=== PATIENT | female | born 1970 | race Caucasian/White ===

== ENCOUNTER 2018-09-18 13:01 | Observation (INO) ==
--- NOTE | 2018-09-18 13:34 | Emergency Department Note ---
Disposition Clinical Impression: Chest pain, Palpitations, Sinus tachycardia Disposition: Admitted As Inpatient Condition: Fair General Adult HPI - General Stated complaint: Hypertension,Palpatations Time Seen by Provider: 09/18/18 13:10 Source: patient Limitations: no limitations Nursing Notes Reviewed: Yes Vital Signs Reviewed: Yes - History of Present Illness Pain Scale: 0 - Related Data Home Medications Medication Instructions Recorded Confirmed Ibuprofen [Ibu-200] 600 mg PO 1-2XD PRN 09/18/18 09/18/18 Omeprazole [PriLOSEC] 40 mg PO DAILY 09/18/18 09/18/18 Orphenadrine Citrate [Orphenadrine 100 mg PO BID 09/18/18 09/18/18 Citrate ER] Rizatriptan Benzoate [Maxalt Chemical Engineering Technologist] 10 mg PO PRN PRN 09/18/18 09/18/18 Allergies Allergy/AdvReac Type Severity Reaction Status Date / Time No Known Drug Allergies Allergy See Verified 09/18/18 15:57 Comments Past Medical History - Past Medical History Medical history: Reports: GERD, migraine Surgical history: Reports: non-contributory Psychiatric history: Reports: anxiety - Social History Smoking Status: Former smoker Smokeless Tobacco Status: No Alcohol use: Reports: occasionally Drug use: Reports: none Physical Exam - General Limitations: no limitations General appearance: alert, in no apparent distress Course Vital Signs Temperature 98.6 F 09/18/18 13:20 Pulse Rate 129 09/18/18 13:20 Respiratory Rate 18 09/18/18 13:20 Blood Pressure 163/114 09/18/18 13:20 O2 Sat by Pulse Oximetry 94 09/18/18 13:20 Temperature 98.3 F 09/18/18 18:59 Pulse Rate 97 09/18/18 18:59 Respiratory Rate 16 09/18/18 18:59 Blood Pressure 144/90 09/18/18 18:59 O2 Sat by Pulse Oximetry 97 09/18/18 18:59 Oxygen Delivery Oxygen Delivery Room Air Medical Decision Making - Lab Data Result diagrams: 09/18/18 14:06 09/18/18 14:06 Lab Results 09/18/18 09/18/18 09/18/18 Range/Units 14:06 14:06 14:06 WBC 12.7 H (4.3-11.1) K/mcL RBC 4.69 (3.82-4.97) M/mcL Hgb 14.2 (11.5-15.4) g/dL Hct 42.3 (35.3-44.9) % MCV 90.2 (83.0-100.0) fL MCH 30.3 (28.0-33.3) pg MCHC 33.6 (31.6-35.5) g/dL RDW 12.3 (11.5-14.5) % Plt Count 368 (140-400) K/mcL MPV 9.5 (9.4-12.4) fL Immature Gran % 0.5 (0-4) % Seg Neutrophils % 57.2 % Lymphocytes % 32.0 % Monocytes % 7.6 % Eosinophils % 2.0 % Basophils % 0.7 % Neutrophils # 7.3 (1.6-8.9) K/mcL Lymphocytes # 4.1 (0.6-4.6) K/mcL Monocytes # 1.0 (0.0-1.3) K/mcL Eosinophils # 0.3 (0.0-0.6) K/mcL Basophils # 0.1 (0.0-0.2) K/mcL D-Dimer < 215 (0-500) ng/mLFEU Sodium 140 (136-145) mEq/L Potassium 3.9 (3.5-5.1) mEq/L Chloride 106 (98-107) mEq/L Carbon Dioxide 23 (23-29) mEq/L BUN 12 (6-20) mg/dL Creatinine 0.66 (0.60-1.20) mg/dL Est GFR ( Amer) > 60 (> 60) Est GFR (Non-Af Amer) > 60 (> 60) BUN/Creatinine Ratio 18 (6-26) Glucose 104 (70-105) mg/dL Calculated Osmolality 290 (280-300) Calcium 8.8 (8.6-10.3) mg/dL Magnesium 2.2 (1.6-2.6) mg/dL Troponin I 0.03 (< 0.04) ng/mL TSH 2.010 (0.340-5.600) mcIU/mL Attestation Statement - Attestation Attestation: Please see attestation to original resident documentation. Note opened in error and unable to cancel document at this time.
[2018-09-18] MEDS ORDERED: Nitroglycerin 0.4 MG TAB.SUBL SL PRN (13:43)
[2018-09-18] MEDS ORDERED: 0.9 % Sodium Chloride 1,000 ML IVC ONE (13:43)
[2018-09-18] MEDS ORDERED: Aspirin 325 MG TABLET PO ONE (13:43)
--- NOTE | 2018-09-18 13:47 | Emergency Department Note ---
Disposition Clinical Impression: Palpitations, Sinus tachycardia Chest pain Qualifiers: Chest pain type: unspecified Qualified Code(s): R07.9 - Chest pain, unspecified Disposition: Admitted As Inpatient Condition: Fair Time of Disposition: 15:11 Arrhythmia/Palpitations HPI - General Chief Complaint: ED Arrhythmia/Palpitations Stated Complaint: Hypertension,Palpatations Time Seen by Provider: 09/18/18 13:10 Source: patient Mode of arrival: ambulatory Limitations: no limitations Nursing Notes Reviewed: Yes Vital Signs Reviewed: Yes - History of Present Illness HPI Narrative: 48-year-old female present for evaluation of hypertension and palpitations. Patient states started on Monday approximately 2 days ago. She noted that she is having fluttering in her chest. At that time she was also having chest pressure that was nonexertional. Did not radiate. Last approximately 10 minutes and resolved. No aggravating or relieving factors. No nausea vomiting. Patient states she did feel diaphoretic at the time. Patient also noted that her jaws were clenched. Patient denies any prior chest pressure however patient has been having these intermittent palpitations and fluttering in her chest. Patient's been taking her blood pressure home is noted be elevated when she otherwise does not have elevated blood pressure. No recent history of PE or DVT. No recent travel. No active cancers. Patient denies any fevers or cough does say she is short of breath when she has these episodes. Does have family history of early heart disease around her age group. - Related Data Home Medications Medication Instructions Recorded Confirmed Ibuprofen [Ibu-200] 600 mg PO 1-2XD PRN 09/18/18 09/18/18 Omeprazole [PriLOSEC] 40 mg PO DAILY 09/18/18 09/18/18 Orphenadrine Citrate [Orphenadrine 100 mg PO BID 09/18/18 09/18/18 Citrate ER] Rizatriptan Benzoate [Maxalt Market Development Specialist] 10 mg PO PRN PRN 09/18/18 09/18/18 Allergies Allergy/AdvReac Type Severity Reaction Status Date / Time No Known Drug Allergies Allergy See Verified 09/18/18 15:57 Comments All systems ED: reviewed and negative except as stated. Constitutional: Denies: fever Cardiovascular: Reports: chest pain Respiratory: Reports: dyspnea. Denies: cough Gastrointestinal: Denies: abdominal pain, nausea, vomiting Past Medical History - Past Medical History Source: patient Medical history: Reports: GERD, migraine Surgical history: Reports: non-contributory Psychiatric history: Reports: anxiety - Social History Smoking Status: Former smoker Smokeless Tobacco Status: No Alcohol use: Reports: occasionally Drug use: Reports: none Physical Exam - General Limitations: no limitations General appearance: alert, in no apparent distress - Head Head exam: atraumatic, normocephalic, normal inspection - Eye Eye exam: Present: normal appearance, PERRL, EOMI - ENT ENT exam: normal exam, mucous membranes moist - Neck Neck exam: Present: normal inspection - Respiratory Respiratory exam: Present: normal lung sounds bilaterally. Absent: respiratory distress - Cardiovascular Cardiovascular exam: Present: normal rhythm, tachycardia. Absent: normal heart sounds - Abdominal Exam Abdominal exam: Present: soft, Non-Tender - Extremities Exam Extremities exam: Present: normal inspection. Absent: pedal edema - Back Exam Back exam: Present: normal inspection - Neurological Exam Neurological exam: Present: alert, oriented X3 - Skin Skin exam: Present: warm, dry, intact, normal color Course Course Narrative: Patient seen and examined. Patient's workup will be initiated. Low risk for PE will obtain d-dimer. Patient also get troponin basic cardiac labs including TSH and a magnesium. - Reevaluation(s) Reevaluation #1: Patient seen and examined. Patient's resting comfortably. Patient will be admitted for continued observation for ACS rule out. Patient is agreeable said plan of care. Time: 15:11 Vital Signs Temperature 98.6 F 09/18/18 13:20 Pulse Rate 129 09/18/18 13:20 Respiratory Rate 18 09/18/18 13:20 Blood Pressure 163/114 09/18/18 13:20 O2 Sat by Pulse Oximetry 94 09/18/18 13:20 Temperature 98.6 F 09/18/18 13:20 Pulse Rate 129 09/18/18 13:20 Respiratory Rate 18 09/18/18 13:20 Blood Pressure 163/114 09/18/18 13:20 O2 Sat by Pulse Oximetry 94 09/18/18 13:20 Oxygen Delivery Oxygen Delivery Room Air Arrhythmia/Palpitations - MDM Narrative Medical decision making narrative: Patient presented for concerns of palpitations or chest pain. Patient had episode of chest pain that occurred a couple days ago. Patient is tachycardic and mildly hypoxic with oxygen saturations 94%. Patient does have moderate risk given history of heart score. Patient was deemed low risk and has a negative d-dimer. Patient will be offered admission for continued cardiopulmonary evaluation regarding concerns for ACS. Patient is agreeable said plan of care. - Lab Data Lab results reviewed: Yes I reviewed the patient's lab results. Result diagrams: 09/18/18 14:06 09/18/18 14:06 Lab Results 09/18/18 09/18/18 09/18/18 Range/Units 14:06 14:06 14:06 WBC 12.7 H (4.3-11.1) K/mcL RBC 4.69 (3.82-4.97) M/mcL Hgb 14.2 (11.5-15.4) g/dL Hct 42.3 (35.3-44.9) % MCV 90.2 (83.0-100.0) fL MCH 30.3 (28.0-33.3) pg MCHC 33.6 (31.6-35.5) g/dL RDW 12.3 (11.5-14.5) % Plt Count 368 (140-400) K/mcL MPV 9.5 (9.4-12.4) fL Immature Gran % 0.5 (0-4) % Seg Neutrophils % 57.2 % Lymphocytes % 32.0 % Monocytes % 7.6 % Eosinophils % 2.0 % Basophils % 0.7 % Neutrophils # 7.3 (1.6-8.9) K/mcL Lymphocytes # 4.1 (0.6-4.6) K/mcL Monocytes # 1.0 (0.0-1.3) K/mcL Eosinophils # 0.3 (0.0-0.6) K/mcL Basophils # 0.1 (0.0-0.2) K/mcL D-Dimer < 215 (0-500) ng/mLFEU Sodium 140 (136-145) mEq/L Potassium 3.9 (3.5-5.1) mEq/L Chloride 106 (98-107) mEq/L Carbon Dioxide 23 (23-29) mEq/L BUN 12 (6-20) mg/dL Creatinine 0.66 (0.60-1.20) mg/dL Est GFR ( Amer) > 60 (> 60) Est GFR (Non-Af Amer) > 60 (> 60) BUN/Creatinine Ratio 18 (6-26) Glucose 104 (70-105) mg/dL Calculated Osmolality 290 (280-300) Calcium 8.8 (8.6-10.3) mg/dL Magnesium 2.2 (1.6-2.6) mg/dL Troponin I 0.03 (< 0.04) ng/mL TSH 2.010 (0.340-5.600) mcIU/mL - Radiology Data Radiology results reviewed: Yes I reviewed the patient's radiology results. Chest X-Ray 09/18/18 13:43 IMPRESSION: No acute abnormality. D/ / John Noonan MD / John Noonan MD Interpreting Provider: John Noonan MD - EKG Data EKG attestation: Yes I reviewed and interpreted this EKG. EKG shows normal: sinus rhythm Rate: tachycardia Rhythm: NSR [place]/QRS: normal T wave inversions noted in: v1 Interpretation: nonspecific ST-T wave changes S.B.A.R. - S.B.A.RSouleymane Situation: Demographics Background: Presenting Complaint Assessment: Vital Signs, Course and respsone to treatment, Patient/Family Expectation Recommendation: Barrier(s) to disposition, Recommendation based on pending studies, treatments, or consults S.B.A.RSouleymane Report Given to: Dr. Fox SSouleymaneBSouleymaneAWalt Repor Time: 15:42 Attestation Statement - Attestation Attestation: Resident Attestation: I examined this patient and my medical decision making was reviewed with the Resident Physician. I agree with the documented findings, disposition and treatment plan as described except to the extent set forth below. We independently had [id number] contact with the patient. Patient presenting for evaluation of palpitations and chest pressure. Patient states pressure with associated nausea. Significant family history of heart disease. Patient will undergo further cardiac workup with the emergency department. Patient will likely require admission for further ACS rule out given symptoms and significant family history of early heart disease. Resting comfortably in bed, no acute distress, regular rate and rhythm, clear to auscultation bilaterally,and swelling in the lower extremities. EKG reviewed with resident physician. Agree with documentation.
[2018-09-18 14:18] LABS: Basophils # 0.1 K/mcL (0.0-0.2); Basophils % 0.7 %; Eosinophils # 0.3 K/mcL (0.0-0.6); Hematocrit 42.3 % (35.3-44.9); Hemoglobin 14.2 g/dL (11.5-15.4); Immature Granulocytes % 0.5 % (0-4); Lymphocytes # 4.1 K/mcL (0.6-4.6); Mean Corpuscular HGB Conc 33.6 g/dL (31.6-35.5); Mean Corpuscular Hemoglobin 30.3 pg (28.0-33.3); Mean Corpuscular Volume 90.2 fL (83.0-100.0); Mean Platelet Volume 9.5 fL (9.4-12.4); Monocytes % 7.6 %; Neutrophils # 7.3 K/mcL (1.6-8.9); Platelet Count 368 K/mcL (140-400); Red Blood Count 4.69 M/mcL (3.82-4.97); Red Cell Distribution Width 12.3 % (11.5-14.5); Segmented Neutrophils % 57.2 %
[2018-09-18 15:22] LABS: BUN/Creatinine Ratio 18 (6-26); Blood Urea Nitrogen 12 mg/dL (6-20); Calcium 8.8 mg/dL (8.6-10.3); Carbon Dioxide 23 mEq/L (23-29); Chloride 106 mEq/L (98-107); Glucose 104 mg/dL (70-105); Magnesium 2.2 mg/dL (1.6-2.6); Osmolality,Calculated 290 (280-300); Potassium 3.9 mEq/L (3.5-5.1); Sodium 140 mEq/L (136-145); Troponin I 0.03 ng/mL (< 0.04); eGFR For Non-African Americans > 60 (> 60)
--- NOTE | 2018-09-18 15:43 | Internal Med History&Physical ---
<Stoney Polk S - Last Filed: 09/18/18 16:13> Date of Encounter: 09/18/18 Time of Encounter: 16:13 Internal Medicine - H&P: HPI Chief complaint: palpiltations Admitted From: Home Plans for Post Hospital Care: Home History of present illness: Ms. Epperson is a 48 year old female with GERD and migraines is here with the chief complaint of chest pain. She states that three days ago she began having unprovoked chest pain and palpiltations that occured suddenly and wasn't associated with anything in particular. She states that it didn't start in relation to anything. She denies this ever happening before. She took her BP and it was in the 180's which is high for her. She states that her chest pressure continued over the last few days and is dull /substernal and nonradiating. It feels like something is sitting on her chest. The pt has associated diaphoresis and fatigue. She also c/o dizziness and lig htheadedness. She denies shortness of breath at rest but gets APARICIO. She denies N/V/D or abdominal pain. She denies any recent travel long distance or hx of blood clot. Does have a FH of CAD, father has had CABG, mom had dilated cardiomyopathy. In the ER the pt had an EKG showing sinus tacycardia with V1 inversion. She had a negative troponin x1. TSH WNL and no electrolyte abnormalities. She was given a 1L fluid bolus and XR chest ruled out PNA. She will be admitted for further cardiac workup. Past Med Surg Social Fam HX - Past Medical History Medical history: GERD, migraine Psychiatric history: anxiety - Past Surgical History Surgical History: non-contributory Additional surgical history: tubal - Social History Smoking Status: Former smoker Smokeless Tobacco Status: No Alcohol use: occasionally Drug use: none - Family History Mother Adopted: No Hx Family Cardiac Disorders: Yes (dilated cardiomyopathy) Father Adopted: No Hx Family Cardiac Disorders: Yes (s/p CABG) Internal Medicine - H&P: Meds Ibuprofen [Ibu-200] 600 mg PO 1-2XD PRN 09/18/18 [History] Omeprazole [PriLOSEC] 40 mg PO DAILY 09/18/18 [History] Orphenadrine Citrate [Orphenadrine Citrate ER] 100 mg PO BID 09/18/18 [History] Rizatriptan Benzoate [Maxalt Renal Medicine Specialist] 10 mg PO PRN PRN 09/18/18 [History] Allergy/AdvReac Type Severity Reaction Status Date / Time No Known Drug Allergies Allergy See Verified 09/18/18 15:57 Comments All Systems PM: A 10-system review of systems was performed and is negative for pertinent findings except as documented above in the HPI. - Constitutional Constitutional: fatigue, lethargy, no fever(s) - EENT Eyes: blurry vision - Cardiovascular Cardiovascular ROS IM: chest pain, diaphoresis, dyspnea on exertion, lightheadedness, palpitations, no dyspnea - Respiratory Respiratory: dyspnea on exertion, no cough, no dyspnea, no hemoptysis - Gastrointestinal Gastrointestinal: no abdominal pain, no diarrhea, no nausea, no vomiting - Genitourinary Genitourinary: no dysuria, no hematuria - Musculoskeletal Musculoskeletal ROS IM: arthralgias, back pain, neck pain - Integumentary Integumentary IM: no rash - Neurological Neurological ROS: numbness, tingling, no confusion - Psychiatric Psychiatric: no confusion - Endocrine Endocrine IM: fatigue - Hematologic/Lymphatic Hematologic/Lymphatic: no easy bleeding, no easy bruising - Constitutional Vitals: Temp Pulse Resp BP Pulse Ox 98.6 F 129 18 163/114 94 09/18/18 13:20 09/18/18 13:20 09/18/18 13:20 09/18/18 13:20 09/18/18 13:20 Exam: General - NAD, AOX3, laying in bed comfortably HEENT - NCAT, no scleral icterus, MMM Cardio - sinus tacycardia CTA Lungs - CTAB, no wheeze/rhonchi/rales, not in respiratory distress Abd - NTND, obese, no rebound or guarding Skin - warm, dry, intact Neuro - no FND, strength/motor/sensation intact Extremities - no edema bilaterally, able to move all extremities without difficulty Psych - anxious appearing Internal Med - H&P Results - Labs CBC & Chem 7: 09/18/18 14:06 09/18/18 14:06 Labs: Short CBC 09/18/18 Range/Units 14:06 WBC 12.7 H (4.3-11.1) K/mcL Hgb 14.2 (11.5-15.4) g/dL Hct 42.3 (35.3-44.9) % Plt Count 368 (140-400) K/mcL Neutrophils # 7.3 (1.6-8.9) K/mcL BMP 09/18/18 14:06 Sodium 140 Potassium 3.9 Chloride 106 Carbon Dioxide 23 BUN 12 Creatinine 0.66 Glucose 104 Calcium 8.8 Cardiac Enzymes 09/18/18 Range/Units 14:06 Troponin I 0.03 (< 0.04) ng/mL - Impressions ITS Impressions Chest X-Ray 09/18/18 13:43 IMPRESSION: No acute abnormality. D/ / John Noonan MD / John Noonan MD Interpreting Provider: John Noonan MD - Assessment and Plan (1) Chest pain Current Visit: Yes Status: Acute Assessment and plan: Pt presents with dull, substernal CP - not relieved by rest - has not taken nitroglycerin at home - FH significant for CAD, stroke Troponin (-) x 1 EKG showed sinus tacycardia, t wave inversion V1 XR chest negative D dimer negative; no hx of long travel or personal hx of DVT/PE TSH WNL No electrolyte abnormalities noted Plan: - ECHO pending - stress test in the AM, will consult cardiology if there is ischemia - nitroglycerin prn chest pain - ASA PO daily 81mg - lipid panel pending - troponin x 3 - magnesium, phosphorus with AM labs - FEN: cardiac diet - dispo: chest pain workup, HTN control, likely to be d/c home Qualifiers: Chest pain type: unspecified Qualified Code(s): R07.9 - Chest pain, unspecified (2) Hypertensive urgency Current Visit: Yes Status: Acute Assessment and plan: Pt with new onset of HTN, chest pain - began experiencing CP/palpiltations 3 days ago - headache/dizziness/lightheaded x 2 days - measured BP at home, SBP 180's and pt reports no hx of HTN SBP in the room 170's EKG showed sinus tacycardia, T wave inversion in v1 Plan: - start norvasc 5mg PO - lopressor 5mg q6hr for SBP>160, hold for SBP<100 (3) Palpitations Current Visit: Yes Status: Acute Assessment and plan: Secondary to sinus tachycardia. (4) Sinus tachycardia Current Visit: Yes Status: Acute Assessment and plan: See above. (5) DVT prophylaxis Current Visit: Yes Status: Acute Assessment and plan: sq heparin (6) Migraines Current Visit: Yes Status: Acute Assessment and plan: Hx of migraines on maxalt. Will hold due to vasospasm potential. Qualifiers: Migraine type: unspecified Status migrainosus presence: without status migrainosus Intractability: not intractable Qualified Code(s): G43.909 - Migraine, unspecified, not intractable, without status migrainosus (7) GERD (gastroesophageal reflux disease) Current Visit: No Status: Chronic Assessment and plan: Con't home prilosec. Qualifiers: Esophagitis presence: esophagitis presence not specified Qualified Code(s): K21.9 - Gastro-esophageal reflux disease without esophagitis - Time Spent With Patient Total time spent is greater than 50% in coordination of care (as documented) at patient's floor/unit and/or counseling patient: 25 - 35 minutes <Renato Oliveira - Last Filed: 09/18/18 17:35> Date of Encounter: 09/18/18 Internal Medicine - H&P: HPI History of present illness: Ms. Epperson is a 48 year old female All Systems PM: A 10-system review of systems was performed and is negative for pertinent findings except as documented above in the HPI. - Constitutional Vitals: Temp Pulse Resp BP Pulse Ox 98.7 F 99 18 147/93 98 09/18/18 17:22 09/18/18 17:22 09/18/18 17:22 09/18/18 17:22 09/18/18 17:22 Internal Med - H&P Results - Labs CBC & Chem 7: 09/18/18 14:06 09/18/18 14:06 Labs: Short CBC 09/18/18 Range/Units 14:06 WBC 12.7 H (4.3-11.1) K/mcL Hgb 14.2 (11.5-15.4) g/dL Hct 42.3 (35.3-44.9) % Plt Count 368 (140-400) K/mcL Neutrophils # 7.3 (1.6-8.9) K/mcL BMP 09/18/18 14:06 Sodium 140 Potassium 3.9 Chloride 106 Carbon Dioxide 23 BUN 12 Creatinine 0.66 Glucose 104 Calcium 8.8 Cardiac Enzymes 09/18/18 Range/Units 14:06 Troponin I 0.03 (< 0.04) ng/mL - Impressions ITS Impressions Chest X-Ray 09/18/18 13:43 IMPRESSION: No acute abnormality. D/ / John Noonan MD / John Noonan MD Interpreting Provider: John Noonan MD - Time Spent With Patient Total time spent is greater than 50% in coordination of care (as documented) at patient's floor/unit and/or counseling patient: - Attending Attestation I examined this patient and my medical decision-making was reviewed with the Resident Physician. I agree with the documented findings, disposition and treatment plan as described except to the extent set forth below.
[2018-09-18] MEDS ORDERED: Naloxone 0.4 MG/ML INJ IVP PRN (16:09)
--- NOTE | 2018-09-18 16:26 | Electrocardiograph Report ---
[employer] Test Date: 2018-09-18 Pat Name: Tiffany Epperson Department: [id number] Room: Gender: F Insurance Producer: : [id number] Requested By: Abdirahman Landry Order Number: [id number] Reading MD: iMtch Wall Measurements Intervals [place] Rate: 123 P: 52 [place]: 144 QRS: 48 QRSD: 87 T: 44 QT: 326 QTc: 467 Interpretive Statements Sinus tachycardia Low voltage, precordial leads Baseline wander in lead(s) V6 Electronically Signed On 09-18-2018 16:25:29 EDT by Mitch Wall
[2018-09-18] MEDS: *HR* Heparin 5,000 UNIT/ML VIAL SQ SCH (18:37)
[2018-09-18] MEDS: *HR* Metoprolol 5 MG/5 ML VIAL IVP SCH ×2 (18:39→23:00)
[2018-09-19 05:01] LABS: Hematocrit 41.4 % (35.3-44.9); Hemoglobin 13.9 g/dL (11.5-15.4); Mean Corpuscular HGB Conc 33.6 g/dL (31.6-35.5); Mean Corpuscular Hemoglobin 30.3 pg (28.0-33.3); Mean Corpuscular Volume 90.2 fL (83.0-100.0); Mean Platelet Volume 9.5 fL (9.4-12.4); Platelet Count 325 K/mcL (140-400); Red Blood Count 4.59 M/mcL (3.82-4.97); Red Cell Distribution Width 12.5 % (11.5-14.5)
[2018-09-19] MEDS: *HR* Metoprolol 5 MG/5 ML VIAL IVP SCH ×2 (05:07→12:05)
[2018-09-19] MEDS: *HR* Heparin 5,000 UNIT/ML VIAL SQ SCH (05:09)
[2018-09-19 05:20] LABS: Alanine Aminotransferase 21 Units/L (7-52); Albumin/Globulin Ratio 1.9 (1.1-2.2); Alkaline Phosphatase 44 Units/L (34-104); Aspartate Amino Transferase 15 Units/L (13-39); BUN/Creatinine Ratio 25 (6-26); Bilirubin,Total 0.5 mg/dL (0.3-1.0); Blood Urea Nitrogen 14 mg/dL (6-20); Calcium 8.8 mg/dL (8.6-10.3); Carbon Dioxide 22 mEq/L (23-29); Chloride 109 mEq/L (98-107); Chol/HDL Ratio 5.9 (0-4.9); Cholesterol 184 mg/dL (< 200); Globulin 2.1 g/dL (2.4-3.5); Glucose 96 mg/dL (70-105); HDL Cholesterol 31 mg/dL (40-59); LDL Cholesterol,Calculated 115 mg/dL (0-99); Magnesium 2.1 mg/dL (1.6-2.6); Osmolality,Calculated 288 (280-300); Phosphorous 3.4 mg/dL (2.7-4.5); Potassium 4.1 mEq/L (3.5-5.1); Sodium 139 mEq/L (136-145); Total Protein 6.1 g/dL (6.4-8.9); Triglycerides 192 mg/dL (< 150); eGFR For Non-African Americans > 60 (> 60)
[2018-09-19] MEDS ORDERED: Regadenoson 0.4 MG/5 ML SYRINGE IVP ONE (07:00)
--- NOTE | 2018-09-19 08:06 | Internal Med Progress Note ---
<PolkStoney S - Last Filed: 09/19/18 11:08> Hospitalist Progress Note - Encounter Date of Encounter: 09/19/18 Time of Encounter: 09:55 - Subjective Interval History: Pt is seen at bedside. She had her stress test today. She has no acute complaints or concerns. She denies active chest pain, headache or SOB. - Exam Vitals: Temp Pulse Resp BP Pulse Ox 98.4 F 86 14 120/82 97 09/19/18 06:29 09/19/18 06:29 09/19/18 06:29 09/19/18 06:29 09/19/18 06:29 Exam: General - NAD, AOX3, laying in bed comfortably HEENT - NCAT, no scleral icterus, MMM Cardio - sinus tacycardia CTA Lungs - CTAB, no wheeze/rhonchi/rales, not in respiratory distress Abd - NTND, obese, no rebound or guarding Skin - warm, dry, intact Neuro - no FND, strength/motor/sensation intact Extremities - no edema bilaterally, able to move all extremities without difficu lty Psych - anxious appearing - Assessment and Plan (1) Chest pain Current Visit: Yes Status: Acute Assessment and Plan: Pt presents with dull, substernal CP - not relieved by rest - has not taken nitroglycerin at home - FH significant for CAD, stroke Troponin (-) x 3 EKG showed sinus tacycardia, t wave inversion V1 XR chest negative D dimer negative; no hx of long travel or personal hx of DVT/PE TSH WNL No electrolyte abnormalities noted ECHO LVEF 65%, no valvular dysfxn, no pHTN Plan: - UDS pending - stress test report pending - nitroglycerin prn chest pain - ASA PO daily 81mg - FEN: cardiac diet - dispo: chest pain workup, stress test report pending, likely to be d/c home will re-check vitals after stress test results comes back and depending on results, if negative can be d/c (2) Hypertensive urgency Current Visit: Yes Status: Acute Assessment and Plan: Pt with new onset of HTN, chest pain - began experiencing CP/palpiltations 3 days ago - headache/dizziness/lightheaded x 2 days - measured BP at home, SBP 180's and pt reports no hx of HTN SBP in the room 170's on admission EKG showed sinus tacycardia, T wave inversion in v1 BP improved to 110-120's Plan: - start norvasc 5mg PO - lopressor 5mg q6hr for SBP>160, hold for SBP<100 (3) Palpitations Current Visit: Yes Status: Resolved Assessment and Plan: Secondary to sinus tachycardia. (4) Sinus tachycardia Current Visit: Yes Status: Resolved Assessment and Plan: see above. resolved. (5) DVT prophylaxis Current Visit: Yes Status: Acute Assessment and Plan: sq heparin. (6) Migraines Current Visit: No Status: Chronic Assessment and Plan: Hx of migraines on maxalt. Will hold due to vasospasm potential. (7) GERD (gastroesophageal reflux disease) Current Visit: No Status: Chronic Assessment and Plan: con't home prilosec. DVT Prophylaxis: sq heparin - Time Spent with Patient Total time spent is greater than 50% in coordination of care (as documented) at patient's floor/unit and/or counseling patient: less than 15 minutes Plan of Care Discussed with: family Internal Medicine: Result - Labs CBC & Chem 7: 09/19/18 04:35 09/19/18 04:35 Labs: Short CBC 09/18/18 09/19/18 Range/Units 14:06 04:35 WBC 12.7 H 12.0 H (4.3-11.1) K/mcL Hgb 14.2 13.9 (11.5-15.4) g/dL Hct 42.3 41.4 (35.3-44.9) % Plt Count 368 325 (140-400) K/mcL Neutrophils # 7.3 (1.6-8.9) K/mcL BMP 09/18/18 09/19/18 14:06 04:35 Sodium 140 139 Potassium 3.9 4.1 Chloride 106 109 H Carbon Dioxide 23 22 L BUN 12 14 Creatinine 0.66 0.55 L Glucose 104 96 Calcium 8.8 8.8 Cardiac Enzymes 09/18/18 09/18/18 09/19/18 Range/Units 14:06 20:40 04:35 Troponin I 0.03 < 0.03 < 0.03 (< 0.04) ng/mL Liver Function 09/19/18 Range/Units 04:35 Total Bilirubin 0.5 (0.3-1.0) mg/dL AST 15 (13-39) Units/L ALT 21 (7-52) Units/L Alkaline Phosphatase 44 (34-104) Units/L Albumin 4.0 (3.5-5.7) g/dL - ABG Interpretation ABG results: PT/INR, D-dimer < 215 ng/mLFEU (0-500) 09/18/18 14:06 - Impressions Impressions Chest X-Ray 09/18/18 13:43 IMPRESSION: No acute abnormality. D/ / John Noonan MD / John Noonan MD Interpreting Provider: John Noonan MD Consult Discharge Plan - Plan Referrals: Cecilia Marshall CNP [Primary Care Provider] - 09/24/18 8:40 am <Ana Bahena - Last Filed: 09/19/18 12:50> Hospitalist Progress Note - Encounter Date of Encounter: 09/19/18 - Exam Vitals: Temp Pulse Resp BP Pulse Ox 98.1 F 97 14 137/99 95 09/19/18 10:39 09/19/18 10:39 09/19/18 10:39 09/19/18 10:39 09/19/18 10:39 - Time Spent with Patient Total time spent is greater than 50% in coordination of care (as documented) at patient's floor/unit and/or counseling patient: Internal Medicine: Result - Labs CBC & Chem 7: 09/19/18 04:35 09/19/18 04:35 Labs: Short CBC 09/18/18 09/19/18 Range/Units 14:06 04:35 WBC 12.7 H 12.0 H (4.3-11.1) K/mcL Hgb 14.2 13.9 (11.5-15.4) g/dL Hct 42.3 41.4 (35.3-44.9) % Plt Count 368 325 (140-400) K/mcL Neutrophils # 7.3 (1.6-8.9) K/mcL BMP 09/18/18 09/19/18 14:06 04:35 Sodium 140 139 Potassium 3.9 4.1 Chloride 106 109 H Carbon Dioxide 23 22 L BUN 12 14 Creatinine 0.66 0.55 L Glucose 104 96 Calcium 8.8 8.8 Cardiac Enzymes 09/18/18 09/18/18 09/19/18 Range/Units 14:06 20:40 04:35 Troponin I 0.03 < 0.03 < 0.03 (< 0.04) ng/mL Liver Function 09/19/18 Range/Units 04:35 Total Bilirubin 0.5 (0.3-1.0) mg/dL AST 15 (13-39) Units/L ALT 21 (7-52) Units/L Alkaline Phosphatase 44 (34-104) Units/L Albumin 4.0 (3.5-5.7) g/dL - ABG Interpretation ABG results: PT/INR, D-dimer < 215 ng/mLFEU (0-500) 09/18/18 14:06 - Impressions Impressions Chest X-Ray 09/18/18 13:43 IMPRESSION: No acute abnormality. D/ / John Noonan MD / John Noonan MD Interpreting Provider: John Noonan MD Echocardiogram 09/18/18 16:10 Impressions: LVEF 60-65%. Normal LV chamber size, wall thickness and function. Mild left ventricular diastolic dysfunction. Normal right ventricular structure and function. No evidence of pulmonary hypertension. No significant valvular dysfunction. Left Ventricular Wall Motion: Rest Echo Findings All wall segments showed normal motion. Findings: Study Quality * Technically adequate exam. ECG Findings * Normal sinus rhythm. Left Ventricle * LVEF 60-65%. * Normal LV chamber size, wall thickness and function. * Mild left ventricular diastolic dysfunction. Right Ventricle * Normal right ventricular structure and function. Left Atrium * Normal left atrial size. Right Atrium * Normal right atrial size. Aortic Valve * Aortic valve not well visualized. * No aortic regurgitation. * No aortic stenosis. Mitral Valve * Normal mitral valve structure and function. * No mitral regurgitation. * No mitral stenosis. Tricuspid Valve * Normal tricuspid valve structure and function. * Trace tricuspid regurgitation. * No evidence of pulmonary hypertension. Pulmonic Valve * Normal pulmonic valve structure and function. * No pulmonic regurgitation. Aorta * Normally sized aortic root. Pericardium * The pericardium appears normal. IVC * Normal IVC dimensions and inspiratory collapse. Pulmonary Artery * Normal visualized portions of the main pulmonary artery. - Attending Attestation I examined this patient and my medical decision-making was reviewed with the Resident Physician Dr Polk. I agree with the documented findings, disposition and treatment plan as described except to the extent set forth below. Ms Epperson is being observed for chest pain and transient HTN urgency awake, family at bedside. Had stress test this morning. headache and tachycardia immediately following and now both resovled. no chest pain overnight or today. no palpitations, presyncope or dizziness. Feeling well currently and awaiting test results. gen- alert, awake,appears stated age eyes- pupils equal round cv- reg rate and rhythm, normal s1,s2, no murmurs appreciated, no le edema lungs- ctabl, no wheezing, rhonchi or crackles abd- soft, non tender, non distended, + bs neuro- AAOx3, CN grossly intact, no focal deficits Chest pain, atypical, resolved Possibly related to HTN at time of presentation or GERD hx stress test without ischemia Echo unremarkable trops neg x3 Dimer negative -given negative stress and gerd hx stop ASA -cont PPI and outpt PCP follow up for further investigation if gerd related -cont norvasc and pcp fu for bp management HTN urgency- resolved UDS negative -cont norvasc and outpt pcp follow up Dyslipidemia on lipid panel 10 year ASCVD risk 3/1 % and does not require medication at this time -lifestyle modifications and pcp fu Sinus tachycardia, resolved further diagnoses and plan as noted by resident will dc to home today time spent on dc 35 min __ <Stoney Polk S - Last Filed: 09/19/18 11:08> (1) Chest pain Qualifiers: Chest pain type: unspecified Qualified Code(s): R07.9 - Chest pain, unspec ified (6) Migraines Qualifiers: Migraine type: unspecified Status migrainosus presence: without status migrainosus Intractability: not intractable Qualified Code(s): G43.909 - Migraine, unspecified, not intractable, without status migrainosus (7) GERD (gastroesophageal reflux disease) Qualifiers: Esophagitis presence: esophagitis presence not specified Qualified Code(s): K21.9 - Gastro-esophageal reflux disease without esophagitis
[2018-09-19] MEDS ORDERED: amLODIPine 5 MG TABLET PO SCH (09:00)
[2018-09-19] MEDS ORDERED: Aspirin 81 MG TAB.CHEW PO SCH (09:00)
[2018-09-19] MEDS ORDERED: Orphenadrine 100 MG TABLET.ER PO PRN (10:03)
[2018-09-19 10:47] VITALS: BP 137/99
[2018-09-19 12:22] LABS: Amphetamine Screen,Urine Negative ng/mL (Cutoff=1000); Barbiturate Screen,Urine Negative ng/mL (Cutoff=200); Benzodiazepines Screen,Urine Negative ng/mL (Cutoff=200); Cannabinoid Screen,Urine Negative ng/mL (Cutoff = 50); Cocaine Screen,Urine Negative ng/mL (Cutoff= 300); Opiate Screen,Urine Negative ng/mL (Cutoff=300); Phencyclidine Screen,Urine Negative ng/mL (Cutoff=25)
--- NOTE | 2018-09-19 13:03 | Discharge Summary ---
<Stoney Polk S - Last Filed: 09/19/18 12:59> - NOTES TO OUTPATIENT PROVIDER Notes to Outpatient Provider: F/U with PCP in 1 week. Discuss lifestyle modification to reduce cardiac risk factors and to prevent cardiac disease. Discuss the importance of not using ibuprofen with a hx of heart disease. Started norvasc 5mg PO daily while in the hospital for HTN. Orders not resulted at time of discharge: Pending orders 09/18/18 18:33 NM juhi perf SPECT multi [NM] Routine Date of Encounter: 09/19/18 Time of Encounter: 12:59 - Discharge Diagnosis (1) Chest pain Priority: Primary Status: Resolved Qualifiers: Chest pain type: unspecified Qualified Code(s): R07.9 - Chest pain, unspecified (2) Hypertensive urgency Priority: Secondary Status: Acute (3) Palpitations Priority: Secondary Status: Resolved (4) Sinus tachycardia Priority: Secondary Status: Resolved (5) DVT prophylaxis Priority: Secondary Status: Acute (6) Migraines Priority: Secondary Status: Chronic Qualifiers: Migraine type: unspecified Status migrainosus presence: without status migrainosus Intractability: not intractable Qualified Code(s): G43.909 - Migraine, unspecified, not intractable, without status migrainosus (7) GERD (gastroesophageal reflux disease) Priority: Secondary Status: Chronic Qualifiers: Esophagitis presence: esophagitis presence not specified Qualified Code(s): K21.9 - Gastro-esophageal reflux disease without esophagitis Hospital course: Ms. Epperson is a 48 year old female with PMH of GERD and migraines is here with the chief complaint of chest pain. She states that three days ago she began having unprovoked chest pain and palpiltations that occured suddenly and wasn't associated with anything in particular. She states that it didn't start in relation to anything. She denies this ever happening before. She took her BP and it was in the 180's which is high for her. She states that her chest pressure continued over the last few days and is dull /substernal and nonradiating. It feels like something is sitting on her chest. The pt has associated diaphoresis and fatigue. She also c/o dizziness and lightheadedness. She denies shortness of breath at rest but gets APARICIO. She denies N/V/D or abdominal pain. She denies any recent travel long distance or hx of blood clot. Does have a FH of CAD, father has had CABG, mom had dilated cardiomyopathy. In the ER the pt had an EKG showing sinus tacycardia with V1 inversion. She had a negative troponin x3. TSH WNL and no electrolyte abnormalities. She was given a 1L fluid bolus and XR chest ruled out PNA. She will be admitted for further cardiac workup. Stress test performed on the morning of 09/19/18 was negative for ischemia. Impression from the report: Pharmacologic stress ECG is negative for ischemia at level of heart rate achieved. Gated EF > 70%. Small sized, moderate intensity, fixed apical septal defect consistent with artifact. Perfusion imaging was negative for ischemia or infarct. She had an ECHO that showed a LVEF of 65% and no pumonary hypertension or valvular abnormality. Pt is stable for discharge. She is told the importance of cessation of ibuprofen/nsaids and avoiding alcohol. Told the pt to discuss outpatient lifestyle modification with her primary care physician and to follow up in 1 week after hospital visit. Her AVSDC is <5% and she will not be discharged with aspirin or a statin at this time. We will discharge the patient with norvasc 5mg x 30 days and she is to discuss continuation with her PCP. She is told to come back to the ER if her symptoms increase or worsen. Discharge discussed with: patient, family Time spent discussing smoking cessation with patient: 3 to 10 minutes - Time Spent with Patient Total time spent providing and/or coordinating discharge services: Time spent: Less than 30 minutes - Discharge Medications Prescriptions: New amLODIPine [Norvasc] 5 mg PO DAILY 30 Days #30 tablet Continued Rizatriptan Benzoate [Maxalt [employer]] 10 mg PO PRN PRN PRN Reason: Migraine Headache Orphenadrine Citrate [Orphenadrine Citrate ER] 100 mg PO BID Omeprazole [PriLOSEC] 40 mg PO DAILY Discontinued Ibuprofen [Ibu-200] 600 mg PO 1-2XD PRN PRN Reason: Pain Home Medications: Omeprazole [PriLOSEC] 40 mg PO DAILY 09/18/18 [History] Orphenadrine Citrate [Orphenadrine Citrate ER] 100 mg PO BID 09/18/18 [History] Rizatriptan Benzoate [Maxalt [employer]] 10 mg PO PRN PRN 09/18/18 [History] amLODIPine [Norvasc] 5 mg PO DAILY 30 Days #30 tablet 09/19/18 [Rx] Allergies/Adverse Reactions: Allergy/AdvReac Type Severity Reaction Status Date / Time No Known Drug Allergies Allergy See Verified 09/18/18 15:57 Comments Date of admission: 09/18/18 16:32 Primary care physician: Cecilia Marshall CNP Discharging clinician: Stoney Polk Anticipated date of discharge: 09/19/18 - Constitutional Vitals: Temp Pulse Resp BP Pulse Ox 98.1 F 97 14 137/99 95 09/19/18 10:39 09/19/18 10:39 09/19/18 10:39 09/19/18 10:39 09/19/18 10:39 Exam: General - NAD, AOX3, laying in bed comfortably HEENT - NCAT, no scleral icterus, MMM Cardio - sinus tacycardia CTA Lungs - CTAB, no wheeze/rhonchi/rales, not in respiratory distress Abd - NTND, obese, no rebound or guarding Skin - warm, dry, intact Neuro - no FND, strength/motor/sensation intact Extremities - no edema bilaterally, able to move all extremities without difficulty Psych - anxious appearing - Patient Status Disposition: Home, Self-Care Condition: Good Functional capacity at discharge: independent ambulation Overall status at discharge: patient is progressing back to baseline - Discharge Instructions Instructions: Amlodipine (By mouth), Chest Pain (DC), Palpitations (DC), Hypertension (DC) Follow Up With: Cecilia Marshall CNP [Primary Care Provider] - 09/24/18 8:40 am Additional Instructions: Follow-up appointments: If there is not an appointment listed below, please call your physician and schedule a follow-up appointment. If you have congestive heart failure and your symptoms return, make an appointment with your physician. Medication List: Carry an up to date list of medications you are taking at all time. We have given you an updated medication list including any new medications that you have been prescribed. Please provide that list to your primary provider Symptoms: If your condition changes or you experience any of the following symptoms, notify your physician immediately: Unusual or worsening pain, fever, persistent nausea and vomiting, bleeding, increase in swelling (especially in your legs), sudden weight gain, extreme dizziness, chest pain, increased drainage or redness from a wound or incision. Go to the emergency department if you experience a problem with breathing. Weights: If you have a history of swelling or shortness of breath, weigh yourself daily and notify your physician if you have a weight gain of two or more pounds in one day or 5 or more pounds in a week. If you experience any of the warning signs for stroke: Sudden numbness or weakness of the face, arm or leg; especially on one side of the body, sudden confusion, trouble speaking or understanding, sudden trouble seeing in one or both eyes, sudden trouble walking, dizziness, loss of balance or coordination, sudden sever headache with no cause; Call 911 or go to the emergency room. Stroke is a medical emergency. Some risk factors for stroke: Age, cigarette smoking, diabetes, excessive alcohol consumption, family history, high blood pressure, overweight, physical inactivity, prior stroke, heart attack, diagnosis of carotid artery stenosis or other artery disease. If you smoke, STOP: Smoking or tobacco use significantly increases your risk of heart and lung disease. Your chance of disease greatly increases if you continue to smoke. For more information, call the [employer] tobacco quit line for smoking cessation 0-364-CXZC-NOW ( ) - Diet and Activity Activity: increase activity as tolerated Diet: other (cardiac) <Ana Bahena - Last Filed: 09/19/18 13:34> Orders not resulted at time of discharge: Pending orders 09/18/18 18:33 NM juhi perf SPECT multi [NM] Routine Date of Encounter: 09/19/18 Hospital course: Ms. Epperson is a 48 year old female - Time Spent with Patient Total time spent providing and/or coordinating discharge services: Time spent: Greater than 30 minutes (35) Date of admission: 09/18/18 16:32 Primary care physician: Cecilia Marshall CNP - Constitutional Vitals: Temp Pulse Resp BP Pulse Ox 98.1 F 97 14 137/99 95 09/19/18 10:39 09/19/18 10:39 09/19/18 10:39 09/19/18 10:39 09/19/18 10:39 - Diet and Activity Diet: low fat, low cholesterol, low salt diet, other - Attending Attestation I examined this patient and my medical decision-making was reviewed with the Resident Physician Dr Polk. I agree with the documented findings, disposition and treatment plan as described except to the extent set forth below. Ms Epperson is being observed for chest pain and transient HTN urgency awake, family at bedside. Had stress test this morning. headache and tachycardia immediately following and now both resovled. no chest pain overnight or today. no palpitations, presyncope or dizziness. Feeling well currently and awaiting test results. gen- alert, awake,appears stated age eyes- pupils equal round cv- reg rate and rhythm, normal s1,s2, no murmurs appreciated, no le edema lungs- ctabl, no wheezing, rhonchi or crackles abd- soft, non tender, non distended, + bs neuro- AAOx3, CN grossly intact, no focal deficits Chest pain, atypical, resolved Possibly related to HTN at time of presentation or GERD hx stress test without ischemia Echo unremarkable trops neg x3 Dimer negative -given negative stress and gerd hx stop ASA -cont PPI and outpt PCP follow up for further investigation if gerd related -cont norvasc and pcp fu for bp management HTN urgency- resolved UDS negative -cont norvasc and outpt pcp follow up Dyslipidemia on lipid panel 10 year ASCVD risk 3/1 % and does not require medication at this time -lifestyle modifications and pcp fu Sinus tachycardia, resolved further diagnoses and plan as noted by resident will dc to home today time spent on dc 35 min
== END 2018-09-19 14:38 | disposition home or self-care (01) ==
LOC: EMEROOARM 13:01 → 3BNU 13:01 → SUATTDRO 16:32 → 3BNU 17:04
PROVIDERS: ADMIT Student in an Organized Health Care Education/Training Program; ATTEND Internal Medicine